=== PATIENT | male | born 1995 | race Two or more races ===

== ENCOUNTER 2017-11-07 12:58 | Emergency (ER) | payer SELFPAY ==
[~2017-11-07] VITALS: Ht 170.2 cm; Wt 70.0 kg
[2017-11-07 13:10] VITALS: BP 132/71; PULSE 78; RESP 16; TEMP 98.4; O2SAT 100
--- NOTE | 2017-11-07 14:31 | PD ---
HPI Chief Complaint: Fall Time Seen by Provider: 14:03 Travel History International Travel<30 days: No Contact w/Intl Traveler<30days: No Traveled to known affect area: No History of Present Illness HPI 21-year-old male presents emergency department for evaluation after a slip and fall in the shower. Patient states that he slipped forward, he attempted to catch himself but ended up striking his head on the faucet. She sustained a small laceration on the forehead. He says there was initially a lot of blood. He was advised to come in but then he thought he should get evaluated. He did not lose consciousness. He reports no focal deficits or weaknesses. He denies any nausea or vomiting. He reports no visual changes. He reports no pain. He has no other symptoms to report. He is up-to-date on his tetanus vaccination. [facility] Past Medical History Medical History: Denies Significant Hx ?: Not Social History Tobacco Use: No Allergies-Medications (Allergen,Severity, Reaction): Coded Allergies: No Known Allergies (Unverified , 11/07/17) Reported Meds & Prescriptions Reported Meds & Active Scripts Active No Active Prescriptions or Reported Medications Review of Systems Except as stated in HPI: all other systems reviewed are Neg Physical Exam Narrative GENERAL: Well-nourished male patient, no acute distress SKIN: Focused skin assessment warm/dry. 1-1/2 cm superficial laceration in the mid forehead. Bleeding is controlled HEAD: Normocephalic. EYES: Pupils equal and round. No scleral icterus. No injection or drainage. EOMI ENT: No nasal bleeding or discharge. Mucous membranes pink and moist. NECK: Trachea midline. No JVD. CARDIOVASCULAR: Regular rate and rhythm. No murmur appreciated. RESPIRATORY: No accessory muscle use. Clear to auscultation. Breath sounds equal bilaterally. GASTROINTESTINAL: Abdomen soft, non-tender, nondistended. Hepatic and splenic margins not palpable. MUSCULOSKELETAL: No obvious deformities. No clubbing. No cyanosis. No edema. NEUROLOGICAL: Awake and alert. No obvious cranial nerve deficits. Motor grossly within normal limits. Normal speech. PSYCHIATRIC: Appropriate mood and affect; insight and judgment normal. Data Data Last Documented VS Vital Signs Date Time Temp Pulse Resp B/P (MAP) Pulse Ox O2 Delivery O2 Flow Rate FiO2 11/07/17 13:10 98.4 78 16 132/71 (91) 100 Orders Orders Ed Discharge Order (11/07/17 14:28) [facility] Medical Decision Making Medical Screen Exam Complete: Yes Emergency Medical Condition: Yes Medical Record Reviewed: Yes Differential Diagnosis Superficial laceration versus deep versus minor head injury versus intracranial hemorrhage Narrative Course 21-year-old male presents emergency department after falling and striking his head in the shower. Patient appears well. He does have a superficial laceration across the mid forehead. This is approximated with Steri-Strip to reduce scar appearance. Percutaneous CT brain rule, patient will not undergo CT imaging at this time. I discussed with them warning signs. He agrees to return immediately with acute worsening symptoms. Procedures Procedure Narrative LACERATION LOCATION: Mid forehead LENGTH: 1 and half centimeters NUMBER OF STITCHES/REESE: Steri-Strips and Dermabond REPAIR: The area of the laceration was prepped with Betadine and sterilely draped. The wound was copiously irrigated and explored without evidence of foreign body, tendon injury or neurovascular injury. The wound was closed using Steri-Strips and Dermabond. This was a single layer repair. A sterile dressing was applied. The patient was advised to keep the dressing clean and dry. Patient tolerated the procedure well. Diagnosis Primary Impression: Minor head injury without loss of consciousness Qualified Codes: S09.90XA - Unspecified injury of head, initial encounter Additional Impression: Forehead laceration Qualified Codes: S01.81XA - Laceration without foreign body of other part of head, initial encounter Referrals: Primary Care Physician Patient Instructions: General Instructions, Head Injury (ED), Skin Adhesive Care (ED) Additional Instructions: Keep the laceration dry for 24 hours Do not apply ointment. Do not exfoliate the area Do not pull the Steri-Strips off. If they are still in place in 10 days, and use rubbing alcohol and gently remove them. Return immediately to the emergency department with any acute worsening symptoms Med/Other Pt SpecificInfo: No Change to Meds Scripts No Active Prescriptions or Reported Meds Disposition: 01 DISCHARGE HOME Condition: Stable Kyra Avalos SHADE Nov 07, 2017 14:31
== END 2017-11-07 14:39 | disposition home or self-care (01) ==
LOC: NEPK 12:58
DX: S01.81XA Laceration without foreign body of other part of head, initial encounter (principal); W18.2XXA Fall in (into) shower or empty bathtub, initial encounter; Y93.E1 Activity, personal bathing and showering
CPT/HCPCS: 12011